=== PATIENT | male | born 1985 | race Caucasian/White ===

== ENCOUNTER 2021-10-19 19:42 | Emergency (ER) | payer BC ==
[~2021-10-19 19:42] MED LIST: BENTYL 20MG TAB20 MG PO; ZOFRAN ODT 4 MG4 MG PO
[2021-10-19 20:30] LABS: RED BLOOD COUNT 5.26 M/UL (4.20-5.50); WHITE BLOOD COUNT 10.1 K/UL (4.5-11.0)
[2021-10-19 21:02] LABS: BUN/CREATININE RATIO 18 (0-10)
== END 2021-10-19 23:05 | disposition home or self-care (01) ==
LOC: ER1 19:42
PROVIDERS: Physician Assistant
DX: R10.31 Right lower quadrant pain (principal); R10.813 Right lower quadrant abdominal tenderness; K21.9 Gastro-esophageal reflux disease without esophagitis; Z90.49 Acquired absence of other specified parts of digestive tract
CPT/HCPCS: 80053; 81001; 85025; 96374; 96375; 99284; Q9967